=== PATIENT | female | born 1985 | race Caucasian/White ===

== ENCOUNTER 2020-03-12 08:36 | Outpatient (CLI) | payer OTHER ==
[~2020-03-12 08:36] MED LIST: CEFUROXIME500 MG PO; KETO10TA2 PO; URIN D.S. TABLE1 TAB PO
== END 2020-03-12 08:57 | disposition home or self-care (01) ==
LOC: RAD 08:36
PROVIDERS: ATTEND Internal Medicine Cardiovascular Disease
DX: R51 Headache (principal); J44.9 Chronic obstructive pulmonary disease, unspecified; M12.89 Other specific arthropathies, not elsewhere classified, multiple sites; R07.89 Other chest pain

== ENCOUNTER 2023-10-18 08:47 | Outpatient (CLI) | payer OTHER | END 2023-10-18 08:56 | disposition home or self-care (01) | LOC: RX STUDY 08:47 | PROVIDERS: ATTEND Student in an Organized Health Care Education/Training Program | DX: N84.0 Polyp of corpus uteri (principal); N85.6 Intrauterine synechiae ==

== ENCOUNTER → 2024-06-05 09:02 | Outpatient (CLI) | payer OTHER | END | disposition home or self-care (01) | LOC: NUCLEAR 09:00 | PROVIDERS: ATTEND Internal Medicine Cardiovascular Disease | DX: I10 Essential (primary) hypertension (principal) ==

== ENCOUNTER 2024-06-05 11:25 | Outpatient (CLI) | payer OTHER | END 2024-06-05 11:26 | disposition home or self-care (01) | LOC: PRENATAL 11:25 | PROVIDERS: ATTEND Obstetrics & Gynecology Maternal & Fetal Medicine | DX: O36.80X0 Pregnancy with inconclusive fetal viability, not applicable or unspecified (principal); Z36.9 Encounter for antenatal screening, unspecified; Z36.82 Encounter for antenatal screening for nuchal translucency; O09.519 Supervision of elderly primigravida, unspecified trimester; Z3A.12 12 weeks gestation of pregnancy ==

== ENCOUNTER → 2024-07-30 08:08 | Outpatient (CLI) | payer OTHER | END | disposition home or self-care (01) | LOC: PRENATAL 08:08 | PROVIDERS: ATTEND Obstetrics & Gynecology Maternal & Fetal Medicine | DX: O44.00 Complete placenta previa NOS or without hemorrhage, unspecified trimester (principal); O09.519 Supervision of elderly primigravida, unspecified trimester; Z3A.20 20 weeks gestation of pregnancy ==

== ENCOUNTER 2024-10-26 08:41 | Outpatient (CLI) | payer OTHER | END 2024-10-26 08:42 | disposition home or self-care (01) | LOC: PRENATAL 08:41 | PROVIDERS: ATTEND Obstetrics & Gynecology Maternal & Fetal Medicine | DX: O26.849 Uterine size-date discrepancy, unspecified trimester (principal); O36.8199 Decreased fetal movements, unspecified trimester, other fetus; O09.519 Supervision of elderly primigravida, unspecified trimester; Z3A.33 33 weeks gestation of pregnancy ==

== ENCOUNTER 2024-12-07 14:00 | Inpatient (IN) | payer OTHER ==
[~2024-12-07] VITALS: Ht 157.5 cm; Wt 73.5 kg
[2024-12-07 15:08] LABS: BASO % 0.3 % (0.1-1.2); EOS # 0.12 (0.04-0.54); EOS % 1.2 % (0.7-7.0); HEMATOCRIT 34.7 % (34.1-44.9); HEMOGLOBIN 11.8 g/dL (11.2-15.7); LYMPH # 1.48 (1.18-3.74); LYMPH % 14.5 % (19.3-53.1); MEAN CORPUSCULAR HEMOGLOBIN 30.3 pg (25.6-32.2); MONO # 0.53 (0.24-0.82); MONO % 5.2 % (4.7-12.5); NEUT # 7.92 (1.56-6.13); NEUT % 77.2 % (34.0-71.1); PLATELET COUNT 215 K/uL (163-369); RED BLOOD COUNT 3.89 M/uL (3.93-5.22)
[2024-12-07 15:09] LABS: PH,URINE 6.5 (5.0-8.0); URINE APPEARANCE Clear; URINE BILIRRUBIN Negative (NEGATIVE); URINE BLOOD Negative; URINE COLOR Yellow; URINE GLUCOSE Negative (NEGATIVE); URINE KETONE Trace (NEGATIVE); URINE LEUKOCYTE Trace; URINE NITRATE Negative; URINE PROTEIN Negative (NEGATIVE); URINE UROBILINOGEN 0.2 E.U./dl
[2024-12-07 15:10] LABS: URINE RBC 5.5 uL (0.0-20.8); URINE WBC 47.1 uL (0.0-23.2)
[2024-12-07 15:22] LABS: INR < 0.93; PARTIAL THROMBOPLASTIN TIME 24.6 SECONDS (22.0-34.0); PROTHROMBIN TIME 9.8 SECONDS (9.0-11.5)
[2024-12-07 15:36] LABS: ALBUMIN 2.7 gm/dL (3.4-5.0); BILIRUBIN TOTAL 0.28 mg/dL (0.3-1.2); CALCIUM 8.7 mg/dL (8.5-10.1); CREATININE SERUM 0.75 mg/dL (0.55-1.02); GFR 86.48; GLOBULINA 3.5 G/DL (2.4-3.5); POTASSIUM 3.62 mEq/L (3.5-5.1); TOTAL PROTEIN 6.2 gm/dL (6.4-8.2)
[2024-12-17 06:46] VITALS: BP 124/63
[2024-12-17] MEDS ORDERED: PRENATAL TABLE1 EAC4 PO (06:53)
[2024-12-17 07:15] VITALS: BP 120/71
[2024-12-17] MEDS ORDERED: RINGERS SOLUTION,LACTATED 1,000 ML IV SCH (07:15)
[2024-12-17] MEDS ORDERED: MISOPROSTOL 25 MCG/4 ML GEL.W.APPL VAG NR (08:00)
[2024-12-17 11:04] VITALS: BP 109/61
[2024-12-17] MEDS ORDERED: MISOPROSTOL 25 MCG/4 ML GEL.W.APPL VAG ONE ×2 (12:30→16:45)
[2024-12-17 15:29] VITALS: BP 98/66
[2024-12-17] MEDS ORDERED: MISOPROSTOL 25 MCG/4 ML GEL.W.APPL ONE (16:36)
[2024-12-17] MEDS ORDERED: FAMOTIDINE/PF 20 MG/2 ML VIAL ONE (16:37)
[2024-12-17] MEDS ORDERED: FAMOTIDINE/PF 20 MG/2 ML VIAL IV ONE (16:45)
[2024-12-17 19:35] VITALS: BP 102/60
[2024-12-17 23:15] VITALS: BP 110/60
[2024-12-17] MEDS ORDERED: MORPHINE SULFATE 4 MG/ML CARTRIDGE IV ONE (23:45)
[2024-12-18 04:08] VITALS: BP 107/67
[2024-12-18] MEDS ORDERED: OXYTOCIN 500 ML IV SCH (07:00)
[2024-12-18 07:30] VITALS: BP 102/61
[2024-12-18] MEDS ORDERED: OXYTOCIN 20 UNITS/500ML RL PIGGYBAG IV ONE (07:36)
[2024-12-18 11:54] VITALS: BP 129/70
[2024-12-18] MEDS ORDERED: OXYTOCIN 20 UNITS/1000ML RL PIGGYBAG IV ONE (13:55)
[2024-12-18] MEDS ORDERED: ERYTHROMYCIN BASE OPHT 1GM EACH TUBE OP ONE (13:55)
[2024-12-18] MEDS ORDERED: CHLORHEXIDINE GLUCONATE 120 ML BOTTLE TOP ONE (13:56)
[2024-12-18] MEDS ORDERED: LIDOCAINE HCL 1% 10ML VIAL ONE (13:56)
[2024-12-18] MEDS ORDERED: CHLORHEXIDINE GLUCONATE 120 ML BOTTLE TOP SCH (15:00)
[2024-12-18] MEDS ORDERED: OXYTOCIN 1,000 ML IV SCH (15:00)
[2024-12-18] MEDS ORDERED: IBUprofen 400 MG TABLET PO PRN (15:00)
[2024-12-18] MEDS ORDERED: ACETAMINOPHEN 325 MG TABLET PO PRN (15:00)
[2024-12-18 15:30] VITALS: BP 116/59
[2024-12-18 17:57] VITALS: BP 112/72
[2024-12-19 01:37] VITALS: BP 100/60
[2024-12-19 06:28] LABS: BASO % 0.1 % (0.1-1.2); EOS # 0.09 (0.04-0.54); EOS % 0.7 % (0.7-7.0); HEMATOCRIT 29.2 % (34.1-44.9); LYMPH # 1.53 (1.18-3.74); LYMPH % 11.1 % (19.3-53.1); MEAN CORPUSCULAR HEMOGLOBIN 30.6 pg (25.6-32.2); MONO # 1.02 (0.24-0.82); MONO % 7.4 % (4.7-12.5); NEUT # 11.02 (1.56-6.13); PLATELET COUNT 203 K/uL (163-369); RED BLOOD COUNT 3.27 M/uL (3.93-5.22)
[2024-12-19 08:32] VITALS: BP 119/64
[2024-12-19] MEDS ORDERED: PNV,CALCIUM 72/IRON/FOLIC ACID 1 TAB TABLET PO SCH (09:00)
[2024-12-19] MEDS ORDERED: FAMOtidine 20 MG TABLET PO SCH (09:15)
[2024-12-19 15:30] VITALS: BP 107/67
[2024-12-20] VITALS: BP 99/65
[2024-12-20 08:00] VITALS: BP 110/68; BP 124/74
== END 2024-12-20 14:31 | disposition home or self-care (01) | DRG 807 ==
LOC: LDR 12-17 06:31 → OB/GYN 12-17 06:31 → LDR 12-17 14:00 → OB/GYN 12-20 14:31
PROVIDERS: Obstetrics & Gynecology; ADMIT Student in an Organized Health Care Education/Training Program; ATTEND Student in an Organized Health Care Education/Training Program
PROC: 3E0P7VZ Introduction of Hormone into Female Reproductive, Via Natural or Artificial Opening (ICD-10-PCS; 2024-12-17)
PROC: 4A1HXCZ Monitoring of Products of Conception, Cardiac Rate, External Approach (ICD-10-PCS; 2024-12-17)
PROC: 10E0XZZ Delivery of Products of Conception, External Approach (ICD-10-PCS; principal; 2024-12-18)
PROC: 0UQG7ZZ Repair Vagina, Via Natural or Artificial Opening (ICD-10-PCS; 2024-12-18)
PROC: 3E033VJ Introduction of Other Hormone into Peripheral Vein, Percutaneous Approach (ICD-10-PCS; 2024-12-18)
DX: O71.4 Obstetric high vaginal laceration alone (principal); Z37.0 Single live birth; Z3A.40 40 weeks gestation of pregnancy